=== PATIENT | male | born 1975 | race Caucasian/White ===

== ENCOUNTER 2018-11-14 23:09 | Emergency (ER) | payer MEDICAID ==
[~2018-11-14] VITALS: Ht 185.4 cm; Wt 113.6 kg
[2018-11-14 23:15] VITALS: TEMP 99.3
[2018-11-15 00:02] LABS: BASO % 0.5 % (0.0-2.0); EOS # 0.1 (0.0-0.7); EOS % 2.3 % (0-4.0); GRAN % 51.7 % (42.2-75.2); HEMATOCRIT 48.8 % (42.0-52.0); LYMPH # 2.1 (1.2-3.4); LYMPH % 36.4 % (20.0-51.0); MEAN CELL VOLUME 95 fl (80.0-100.0); MEAN CORPUSCULAR HEMOGLOBIN 33 pg (27.0-31.0); MEAN CORPUSCULAR HGB CONC 35 g/dl (33.0-37.0); MEAN PLATELET VOLUME 10.3 fl (7.4-10.4); MONO # 0.5 (0.1-0.6); MONO % 8.9 % (1.7-9.3); PLATELET COUNT 145 K/mm3 (130-400); RED BLOOD COUNT 5.14 M/mm3 (4.20-5.60); REDCELL DISTRIBUTION WIDTH-CV 13.5 % (11.5-14.5)
[2018-11-15 00:08] LABS: PROTHROMBIN TIME 11.8 SECONDS (9.7-12.8)
[2018-11-15 00:11] LABS: PARTIAL THROMBOPLASTIN TIME 33.1 SECONDS (26.0-37.0)
[2018-11-15 00:21] LABS: ALANINE AMINOTRANSFERASE 84 U/L (21-72); ALCOHOL(ethanol),MEDICAL 77 mg/dL; ALKALINE PHOSPHATASE 58 U/L (50-136); ANION GAP 12 mmol/L (7-16); AST,SGOT 46 U/L (15-37); BILIRUBIN,TOTAL 0.5 mg/dL (0.0-1.0); BLOOD UREA NITROGEN 15 mg/dL (9-20); CALCIUM 8.9 mg/dL (8.4-10.2); CARBON DIOXIDE 22 mmol/L (22-30); CHLORIDE 106 mmol/L (98-107); CREATININE, serum 1.23 (0.66-1.25); GLUCOSE 91 mg/dL (74-106); LIPASE 39 U/L (23-300); POTASSIUM 3.8 mmol/L (3.4-5.0); SODIUM 140 mmol/L (137-145)
[2018-11-15 00:33] LABS: TROPONIN-I < 0.012 ng/mL (0.000-0.035)
[2018-11-15] MEDS ORDERED: DOXYCYCLINE 10100 MG PO (02:03)
[2018-11-15 02:30] VITALS: BP 116/81; PULSE 88
== END 2018-11-15 02:30 | disposition home or self-care (01) ==
LOC: COL.ER 23:09
PROVIDERS: Emergency Medicine
DX: R07.89 Other chest pain (principal); I10 Essential (primary) hypertension; E78.5 Hyperlipidemia, unspecified; F17.210 Nicotine dependence, cigarettes, uncomplicated
CPT/HCPCS: J1100

== ENCOUNTER → 2019-03-16 | Outpatient (CLI) | payer MEDICAID ==
[~2019-03-16] MED LIST: DOXYCYCLINE 10100 MG PO
== END ==
LOC: COL.RAD 12:10
DX: M17.11 Unilateral primary osteoarthritis, right knee (principal)

== ENCOUNTER 2019-08-15 14:37 | Emergency (ER) | payer SELFPAY ==
[~2019-08-15] VITALS: Ht 182.9 cm; Wt 115.9 kg
[2019-08-15 14:54] VITALS: TEMP 98
[2019-08-15 15:10] LABS: COLLECTION METHOD CLEAN CATCH
[2019-08-15 15:50] LABS: PH 5 (5-8); SQUAMOUS EPITHELIAL None Seen /hpf; URINE APPEARANCE Clear; URINE BACTERIA None Seen /hpf; URINE BILIRUBIN Negative (NEGATIVE); URINE BLOOD Negative (NEGATIVE); URINE COLOR Yellow; URINE GLUCOSE Negative (NEGATIVE); URINE KETONE Negative (NEGATIVE); URINE LEUKOCYTE ESTERASE Negative (NEGATIVE); URINE NITRATE Negative (NEGATIVE); URINE PROTEIN(semi-quant) Negative (NEGATIVE); URINE RBC 0-2 /hpf; URINE UROBILINOGEN >=4.0 mg/dL (NEGATIVE)
[2019-08-15 16:23] VITALS: BP 152/80; PULSE 86
[2019-08-15] MEDS ORDERED: DOXYCYCLINE HY100 MG PO (16:26)
== END 2019-08-15 16:29 | disposition home or self-care (01) ==
LOC: COL.ER 14:37
PROVIDERS: Physician Assistant
DX: N43.3 Hydrocele, unspecified (principal); N50.812 Left testicular pain
CPT/HCPCS: J0696

== ENCOUNTER → 2020-07-23 | Outpatient (CLI) | payer OTHER ==
[~2020-07-23] MED LIST changes: +DOXYCYCLINE HY100 MG PO
== END ==
LOC: COL.RAD 09:53
DX: I86.1 Scrotal varices (principal); N50.3 Cyst of epididymis

== ENCOUNTER 2021-04-29 13:54 | Emergency (ER) | payer OTHER ==
[~2021-04-29] VITALS: Ht 185.4 cm; Wt 114.5 kg
[2021-04-29 14:53] LABS: BASO % 0.4 % (0.0-2.0); EOS # 0.1 K/mm3 (0.0-0.7); EOS % 0.9 % (0-4.0); GRAN # 6.2 K/mm3 (1.4-6.5); GRAN % 77.7 % (42.2-75.2); HEMATOCRIT 47.2 % (42.0-52.0); HEMOGLOBIN 16.9 g/dl (13.5-18.0); LYMPH # 1.2 K/mm3 (1.2-3.4); LYMPH % 14.7 % (20.0-51.0); MEAN CELL VOLUME 100 fl (80.0-100.0); MEAN CORPUSCULAR HEMOGLOBIN 36 pg (27.0-31.0); MEAN CORPUSCULAR HGB CONC 36 g/dl (33.0-37.0); MEAN PLATELET VOLUME 11.3 fl (7.4-10.4); MONO # 0.5 K/mm3 (0.1-0.6); MONO % 5.9 % (1.7-9.3); PLATELET COUNT 118 K/mm3 (130-400); RED BLOOD COUNT 4.72 M/mm3 (4.20-5.60); REDCELL DISTRIBUTION WIDTH-CV 13.2 % (11.5-14.5)
[2021-04-29 14:56] LABS: PARTIAL THROMBOPLASTIN TIME 32.9 SECONDS (26.0-37.0)
[2021-04-29 14:57] LABS: INR 1.1 (0.8-3.0); PROTHROMBIN TIME 12.6 SECONDS (9.7-12.8)
[2021-04-29 15:05] LABS: ALANINE AMINOTRANSFERASE 100 U/L (0-55); ALBUMIN 3.8 gm/dL (3.5-5.0); ALKALINE PHOSPHATASE 75 U/L (40-150); ANION GAP 10 mmol/L (7-16); AST,SGOT 68 U/L (5-34); BILIRUBIN,TOTAL 0.8 mg/dL (0.2-1.2); BLOOD UREA NITROGEN 11 mg/dL (9-21); CALCIUM 9.1 mg/dL (8.4-10.2); CARBON DIOXIDE 25 mmol/L (22-29); CHLORIDE 106 mmol/L (98-107); CREATININE, serum 1.06 mg/dL (0.72-1.25); GLUCOSE 111 mg/dL (70-99); POTASSIUM 3.7 mmol/L (3.5-4.5); SODIUM 141 mmol/L (136-145)
[2021-04-29 15:24] LABS: TROPONIN-I < 0.010 ng/mL (0.00-0.033)
[2021-04-29 16:08] VITALS: BP 144/99; PULSE 87
== END 2021-04-29 16:09 | disposition home or self-care (01) ==
LOC: COL.ER 13:54
PROVIDERS: Family Medicine
DX: R07.9 Chest pain, unspecified (principal); F17.210 Nicotine dependence, cigarettes, uncomplicated

== ENCOUNTER 2023-11-16 09:25 | Emergency (ER) | payer OTHER ==
[~2023-11-16] VITALS: Ht 185.4 cm; Wt 111.4 kg
[2023-11-16 09:37] VITALS: TEMP 98.2
[2023-11-16] MEDS ORDERED: Ibuprofen 400 MG TAB PO ONE (10:15)
[2023-11-16 10:26] VITALS: BP 135/85; PULSE 87
== END 2023-11-16 10:27 | disposition home or self-care (01) ==
LOC: COL.ER 09:25
DX: S83.92XA Sprain of unspecified site of left knee, initial encounter (principal); M79.89 Other specified soft tissue disorders; X58.XXXA Exposure to other specified factors, initial encounter

== ENCOUNTER 2024-02-03 23:32 | Emergency (ER) | payer OTHER ==
[~2024-02-03] VITALS: Ht 185.4 cm; Wt 115.9 kg
[2024-02-03 23:43] VITALS: TEMP 98.5
[2024-02-04] MEDS ORDERED: Home HYDROcodone/Acetaminophen 5/325 MG #4 TABS/PACK PO ONE (00:45)
[2024-02-04] MEDS ORDERED: Amoxicillin 500 MG CAP PO ONE (01:00)
[2024-02-04] MEDS ORDERED: NORCO 325 MG-51 TAB PO (01:08)
[2024-02-04] MEDS ORDERED: AMOXICILLIN 50500 MG PO (01:08)
[2024-02-04 01:17] VITALS: BP 166/101; PULSE 91
== END 2024-02-04 01:17 | disposition home or self-care (01) ==
LOC: COL.ER 23:32
DX: K02.9 Dental caries, unspecified (principal); F17.210 Nicotine dependence, cigarettes, uncomplicated